=== PATIENT | male | born 1985 | race African-American/Black ===

== ENCOUNTER 2024-10-08 20:47 | Emergency (ER) | payer OTHER ==
--- OUTSIDE RECORDS SUMMARY | 2024-10-08 20:50 | XMS REPORT | Continuity of Care Document ---
Author Name Unknown Address [address] [facility] [address] [place] [address] Organization [facility] [place] Address [address] [facility] [address] [place] [address] Care Team Providers Care Pest Control Supervisor Name Role Phone Pcp, Patient Does Not Have A Primary Care Physic margie Mleanie Gifford Attending Clinician Unava ilable CARLO HERBERT Attending Clinician Unavailable Carlo Herbert MD Attending Clinician [phone] ROBERT BIRD Attending Clinician Unavailable KENYON AZUL Attending Clinician Unavailable KENYON AZUL Attending Clinician Unavailable Kenyon Arizmendi Attending Clinician [phone] MIGUELINA REYES Attending Clinician Unavailable Raymond Reyes MD Attending Clinician [phone] RAYMOND REYES Attending Clinician Unavailable RAYMOND REYES Attending Clinician Unavailable 2, [facility] Attending Clinician Unavailable 2, [facility] Attending Clinician Unavailable CHRISTOFER POLLOCK Attending Clinician Unavailable CHRISTOFER POLLOCK Attending Clinician Unavailable MG VU Attending Clinician Unavailable MG VU Attending Clinician Unavailable CATIE CONCEPCION Attending Clinician Unavailab Catie Coello DO J Attending Clinician [phone] ISABEL IBRAHIM Attending Clinician UnavailIsabel Root MD Attending Clinician [phone] CARLO HERBERT Admitting Clinician Unavailable CHRISTOFER POLLOCK Admitting Clinician Unavailable MG VU Admitting Clinician Unavailable ISABEL IBRAHIM Admitting Clinician UnavailCATIE Rivera Admitting Clinician Unavail le Problems Condition Name Condition Details Condition Category Status Onset Date Resolution Date Last Treatment Date Treating Clinician Comments Source No known active problems No known active problems Disease [facility] Allergies, Adverse Reactions, Alerts Allergy Name Allergy Type Status Severity Reaction(s) Onset Date Inactive Date Treating Clinician Comments Source NO KNOWN ALLERGIE S Drug Class Active [facility] Social History Social Habit Start Date Stop Date Quantity Comments Source Sexual orientation U [facility] Exposure to SARS-CoV-2 (event) 2022-05-10 00:00:00 2022-05-20 13:27:00 Not sure [facility] Sex assigned at 1985 00:00:00 1985 00:00:00 [facility] Smoking Status Start Date Stop Date Source Tobacco smoking consumption unknown [facility] Medications Ordered Medication Name Filled Medication Name Start Date Stop Date Current Medication? Ordering Clinician Indication Dosage Frequency Signature (SIG) Comments Components Source barium sulfate (LIQUID E-Z PAQUE) 60 % (w/v) oral suspension 70 mL 07-23 20:00: 00 07-23 20:00 :00 No [id number] 70mL 70 mL, Oral, ONCE, 1 dose, On Anum 07/23/24 at 1400, Routine [facility] sod bicarb-citr ic ac-simeth (E-Z-GAS II) 2.21-1.53 gram/4 gram packet 1 Packet 07-23 20:00: 00 07-23 19:59 :00 No [id number] 1{packe t} 1 Packet, Oral, ONCE, 1 dose, On Anum 07/23/24 at 1400, Routine [facility] sucralfate 1 gram tablet 01-05 14:47: 34 02-04 00:00 :00 No 1g Take 1 tablet by mouth before meals and at bedtime. [facility] pantoprazol e 40 mg EC tablet 01-05 14:47: 07 Yes 40mg Take 1 tablet by mouth in the morning. [facility] sucralfate (CARAFATE) 1 gram tablet 01-05 00:00: 00 02-05 04:59 :00 No [id number] 1g Take 1 tablet by mouth before meals and at bedtime for 30 days. [facility] iopamidol (ISOVUE 370-500 mL) injection 85 mL 12-25 01:30: 00 12-25 01:30 :00 No [id number] 85mL 85 mL, Intravenou s, ONCE, 1 dose, On Sat12/25/23 at 2030, Routine [facility] diphenhydrA MINE:lidoca ine 2% viscous:maa lox 1:1:1 (FIRST-MOUT HWASH BLM) oral suspension 15 mL 12-24 23:15: 00 12-24 23:42 :00 No 15mL 15 mL, Oral, ONCE, 1 dose, On Sat12/25/23 at 1815, EMILY [facility] sucralfate 1 gram tablet 12-24 00:00: 00 01-05 00:00 :00 No [id number] 1g Take 1 tablet by mouth before meals and at bedtime. [facility] pantoprazol e 40 mg EC tablet 12-24 00:00: 00 01-05 00:00 :00 No [id number] 40mg Take 1 tablet by mouth in the morning. [facility] ondansetron 4 mg disintegrat ing tablet 12-24 00:00: 00 01-05 00:00 :00 No [id number] 4mg Take 1 tablet by mouth every 4 (four) hours as needed for Nausea and Vomiting (N/V). [facility] bisacodyL (DULCOLAX) tablet 10 mg 12-17 23:15: 00 12-17 23:09 :00 No 10mg 10 mg, Oral, ONCE NOW, 1 dose, On Sat12/18/23 at 1815, Routine [facility] lactulose (CEPHULAC) solution 45 mL 12-17 22:30: 00 12-17 23:10 :00 No 45mL 45 mL, Oral, ONCE, 1 dose, On Sat12/18/23 at 1730, EMILY [facility] hyoscyamine sulfate (LEVSIN/SL) sublingual tablet 0.25 mg 12-17 22:30: 00 12-17 21:37 :00 No .25mg 0.25 mg, Sublingual , ONCE NOW, 1 dose, On Sat12/18/23 at 1730, Routine [facility] famotidine (PEPCID (PF)) injection 20 mg 12-17 22:30: 00 12-17 21:46 :00 No 20mg 20 mg, Slow IV Push, ONCE NOW, 1 dose, On Sat12/18/23 at 1730, EMILY [facility] NaCl 0.9% (NS) bolus infusion 1,000 mL 12-17 22:15: 00 12-17 23:08 :00 No 1000mL at 999 mL/hr, 1,000 mL, IV Piggyback, ONCE, 1 dose, On Sat12/18/23 at 1715, STAT [facility] docusate (COLACE) 100 mg capsule 12-17 00:00: 00 01-05 00:00 :00 No [id number] 200mg Take 2 capsules by mouth once daily as needed for Constipati on. [facility] bisacodyL 5 mg EC tablet 12-17 00:00: 00 01-05 00:00 :00 No [id number] 5mg Take 1 tablet by mouth once daily as needed for Constipati on. [facility] Saccharomyc es boulardii (FLORASTOR) 250 mg capsule 12-17 00:00: 00 01-05 00:00 :00 No [id number] 250mg Take 1 capsule by mouth in the morning and 1 capsule in the evening. [facility] famotidine (PEPCID) 20 mg tablet 12-17 00:00: 00 01-05 00:00 :00 No [id number] 20mg Take 1 tablet by mouth in the morning and 1 tablet in the evening. [facility] NaCl 0.9% (NS) bolus infusion 1,000 mL 11-25 03:45: 00 11-25 04:00 :00 No 1000mL at 999 mL/hr, 1,000 mL, IV Infusion, ONCE, 1 dose, On Sat11/25/23 at 2245, [facility] ketorolac (TORADOL) injection 30 mg 2021-06 20:30: 00 05-20 19:59 :00 No 30mg 30 mg, Slow IV Push, ONCE, 1 dose, On 05/20/22 at 1430, [facility] NaCl 0.9% (NS) bolus infusion 1,000 mL 2021-06 20:30: 00 05-20 20:50 :00 No 1000mL at 999 mL/hr, 1,000 mL, IV Infusion, ONCE, 1 dose, On 05/20/22 at 1430, [facility] dexamethaso ne sod phos PF injection 10 mg 2021-06 19:45: 00 05-20 19:54 :00 No 10mg 10 mg, Slow IV Push, ONCE, 1 dose, On 05/20/22 at 1345, 1 mL [facility] metoclopram tao HCl (REGLAN) injection 10 mg 2021-06 19:45: 00 05-20 19:55 :00 No 10mg 10 mg, Slow IV Push, ONCE, 1 dose, On 05/20/22 at 1345, [facility] ketorolac 10 mg tablet 2021-06 00:00: 00 01-05 00:00 :00 No [id number] 10mg Take 1 tablet by mouth every 6 (six) hours as needed (headache) . [facility] metoclopram tao HCl 10 mg tablet 2021-06 204 00:00: 00 01-05 00:00 :00 No [id number] 10mg Take 1 tablet by mouth every 6 (six) hours as needed (nausea and/or headache). [facility] HYDROcodone -acetaminop hen (NORCO 5) 5-325 mg tablet 1 tablet 07-13 15:45: 00 07-13 14:40 :00 No 1{tbl} 1 tablet, Oral, ONCE, 1 dose, On Anum 07/13/21 at 0945, [facility] ketorolac (TORADOL) injection 30 mg 07-13 14:45: 00 07-13 13:42 :00 No 30mg 30 mg, Intramuscu lar, ONCE, 1 dose, On Anum 07/13/21 at 0845, EMILY [facility] FENTanyl PF (SUBLIMAZE (PF)) injection 50 mcg 07-13 14:45: 00 07-13 13:42 :00 No 50ug 50 mcg, Intramuscu lar, ONCE, 1 dose, On Anum 07/13/21 at 0845, Routine [facility] naproxen sodium 550 mg tablet 12-03 00:00: 00 01-05 00:00 :00 No [id number] 550mg Take 1 tablet by mouth 2 (two) times daily with meals. [facility] Immunizations Ordered Immunization Name Filled Immunization Name Date Status Comments Source SARS-COV-2 COVID-19 MODERNA VACCINE 2020-09-19 00:00:00 Completed [facility] SARS-COV-2 COVID-19 MODERNA 12+ YRS VACCINE 2020-09-19 00:00:00 Completed [facility] SARS-COV-2 COVID-19 MODERNA 12+ YRS VACCINE 2020-09-19 00:00:00 Completed [facility] SARS-COV-2 COVID-19 MODERNA VACCINE 2020-08-24 00:00:00 Completed [facility] SARS-COV-2 COVID-19 MODERNA 12+ YRS VACCINE 2020-08-24 00:00:00 Completed [facility] SARS-COV-2 COVID-19 MODERNA 12+ YRS VACCINE 2020-08-24 00:00:00 Completed [facility] SARS-COV-2 COVID-19 MODERNA 12+ YRS VACCINE Unknown Completed [facility] SARS-COV-2 COVID-19 MODERNA 12+ YRS VACCINE Unknown Completed [facility] SARS-COV-2 COVID-19 MODERNA 12+ YRS VACCINE Unknown Completed [facility] SARS-COV-2 COVID-19 MODERNA 12+ YRS VACCINE Unknown Completed [facility] SARS-COV-2 COVID-19 MODERNA 12+ YRS VACCINE Unknown Completed [facility] SARS-COV-2 COVID-19 MODERNA 12+ YRS VACCINE Unknown Completed [facility] SARS-COV-2 COVID-19 MODERNA 12+ YRS VACCINE Unknown Completed [facility] Vital Signs Vital Name Observation Time Observation Value Comments S ource Systolic blood pressure 2024-06-29 23:36:00 135 mm[Hg] [facility] Diastolic blood pressure 2024-06-29 23:36:00 97 mm[Hg] [facility] Heart rate 2024-06-29 23:36:00 83 /min [facility] Body temperature 2024-06-29 23:36:00 37.28 Andreia [facility] Respiratory rate 2024-06-29 23:36:00 19 /min [facility] Body height 2024-06-29 23:36:[address] [facility] Body weight 2024-06-29 23:36:[address] [facility] BMI 2024-06-29 23:36:00 29.99 kg/m2 [facility] Oxygen saturation in Arterial blood by Pulse oximetry 2024-06-29 23:36:00 99 /min [facility] Systolic blood pressure 2024-02-05 18:29:00 116 mm[Hg] [facility] Diastolic blood pressure 2024-02-05 18:29:00 76 mm[Hg] [facility] Heart rate 2024-02-05 18:29:00 78 /min [facility] Body temperature 2024-02-05 18:29:00 36.61 Andreia [facility] Respiratory rate 2024-02-05 18:29:00 20 /min [facility] Body height 2024-02-05 18:29:[address] [facility] Body weight 2024-02-05 18:29:00 96.616 kg Univ [facility] BMI 2024-02-05 18:29:00 30.56 kg/m2 [facility] Oxygen saturation in Arterial blood by Pulse oximetry 2024-02-05 18:29:00 99 /min [facility] Systolic blood pressure 2024-01-06 19:47:00 133 mm[Hg] [facility] Diastolic blood pressure 2024-01-06 19:47:00 89 mm[Hg] [facility] Heart rate 2024-01-06 19:47:00 68 /min [facility] Respiratory rate 2024-01-06 19:47:00 20 /min [facility] Body height 2024-01-06 19:47:[address] [facility] Body weight 2024-01-06 19:47:[address] [facility] BMI 2024-01-06 19:47:00 29.84 kg/m2 [facility] Oxygen saturation in Arterial blood by Pulse oximetry 2024-01-06 19:47:00 98 /min [facility] Systolic blood pressure 2023-12-26 00:41:00 111 mm[Hg] [facility] Diastolic blood pressure 2023-12-26 00:41:00 76 mm[Hg] [facility] Heart rate 2023-12-26 00:41:00 74 /min [facility] Body temperature 2023-12-26 00:41:00 36.78 Andreia [facility] Respiratory rate 2023-12-26 00:41:00 18 /min [facility] Oxygen saturation in Arterial blood by Pulse oximetry 2023-12-26 00:41:00 98 /min [facility] Body height 2023-12-25 22:36:[address] [facility] Body weight 2023-12-25 22:36:[address] [facility] BMI 2023-12-25 22:36:00 31.01 kg/m2 [facility] Systolic blood pressure 2023-12-18 23:00:00 116 mm[Hg] [facility] Diastolic blood pressure 2023-12-18 23:00:00 76 mm[Hg] [facility] Heart rate 2023-12-18 23:00:00 64 /min [facility] Body temperature 2023-12-18 23:00:00 36.83 Andreia [facility] Respiratory rate 2023-12-18 23:00:00 13 /min [facility] Oxygen saturation in Arterial blood by Pulse oximetry 2023-12-18 23:00:00 98 /min [facility] Body height 2023-12-18 21:16:[address] [facility] Body weight 2023-12-18 21:16:[address] [facility] BMI 2023-12-18 21:16:00 28.70 kg/m2 [facility] Systolic blood pressure 2023-11-26 04:00:00 124 mm[Hg] [facility] Diastolic blood pressure 2023-11-26 04:00:00 87 mm[Hg] [facility] Heart rate 2023-11-26 04:00:00 58 /min [facility] Body temperature 2023-11-26 04:00:00 36.72 Andreia [facility] Respiratory rate 2023-11-26 04:00:00 18 /min [facility] Oxygen saturation in Arterial blood by Pulse oximetry 2023-11-26 04:00:00 99 /min [facility] Body height 2023-11-26 02:38:[address] [facility] Body weight 2023-11-26 02:38:[address] [facility] BMI 2023-11-26 02:38:00 30.85 kg/m2 [facility] Systolic blood pressure 2022-05-20 20:30:00 117 mm[Hg] [facility] Diastolic blood pressure 2022-05-20 20:30:00 74 mm[Hg] [facility] Heart rate 2022-05-20 20:30:00 66 /min [facility] Respiratory rate 2022-05-20 20:30:00 15 /min [facility] Oxygen saturation in Arterial blood by Pulse oximetry 2022-05-20 20:30:00 99 /min [facility] Body temperature 2022-05-20 19:29:00 37 Andreia [facility] Body height 2022-05-20 19:29:[address] [facility] Body weight 2022-05-20 19:29:[address] [facility] BMI 2022-05-20 19:29:00 30.13 kg/m2 [facility] Systolic blood pressure 2021-07-13 12:39:00 137 mm[Hg] [facility] Diastolic blood pressure 2021-07-13 12:39:00 86 mm[Hg] [facility] Heart rate 2021-07-13 12:39:00 57 /min [facility] Body temperature 2021-07-13 12:39:00 36.67 Andreia [facility] Respiratory rate 2021-07-13 12:39:00 18 /min [facility] Body height 2021-07-13 12:39:[address] [facility] Body weight 2021-07-13 12:39:[address] [facility] BMI 2021-07-13 12:39:00 30.85 kg/m2 [facility] Oxygen saturation in Arterial blood by Pulse oximetry 2021-07-13 12:39:00 98 /min [facility] Procedures Procedure Date / Time Performed Performing Clinicia n Source [place] BARIUM SWALLOW ESOPHAGUS 2024-07-23 19:54:55 Requisition, Paper [facility] CT ABDOMEN PELVIS W CONTRAST 2023-12-26 00:34:03 Christofer Pollock [facility] LIPASE 2023-12-25 23:50:00 Christofer Pollock [facility] COMP. METABOLIC PANEL ([id number]) 2023-12-25 23:50:00 [facility]23-12-25 23:50:00 Phill [facility] CBC WITH DIFF 2023-12-25 23:45:00 Phill [facility] LIPASE 2023-12-18 21:45:00 Catherine [facility] COMP. METABOLIC PANEL ([id number]) 2023-12-18 21:45:00 Catherine [facility] CBC WITH DIFF 2023-12-18 [facility]:45[facility]-18 21:45:00 Catherine [facility] EKG-12 LEAD 2023-11-26 03:59:25 [facility]FF 2023-11-26 03:43:00 Catie [facility] MAGNES[facility]UM 2023-11-26 02:57:00 Catie Concepcion [facility] TROPONIN I 2023-11-26 02:57:00 Catie Concepcion [facility] COMP. METABOLIC PANEL ([id number]) 2023-11-26 02:57:00 Catie Concepcion [facility] URINALYSIS 2023-11-26 02:57:00 Catie Concepcion [facility] CT HEAD WO CONTRAST 2022-05-20 20:10:04 Isabel Ibrahim [facility] BASIC METABOLIC PANEL (NA, K, CL, CO2, GLUCOSE, BUN, CREATININE, CA) 2022-05-20 19:53:00 Isabel Ibrahim [facility] CBC WITH DIFF 2022-05-20 19:53:00 Isabel Ibrahim [facility] CONSENT/REFUSAL FOR DIAGNOSIS AND TREATMENT 2022-05-20 19:14:43 Doctor Unassigned, [place] [facility] XR CHEST 2 VW 2021-07-13 13:57:08 Catie Concepcion [facility] CONSENT/REFUSAL FOR DIAGNOSIS AND TREATMENT 2021-07-13 12:36:48 Doctor Unassigned, [place] [facility] NOTICE OF PRIVACY PRACTICES 2021-07-13 12:35:03 Doctor Unassigned, [place] [facility] Encounters Start Date/Time End Date/Time Encounter Type Admission Type Attending [facility] Care Facility Care Department Encounter ID Source 2024-01-20 00:00:00 2024-08-01 07:11:41 Orders Only Melanie Gifford [place] [facility] 1.2.840.114 350.1.13.10 4.2.7.2.686 [id number] [facility] 2024-07-23 12:38:54 2024-07-23 23:59:00 Outpatient CARLO MACKAY [facility] [id number] [facility] 2024-07-23 12:38:54 2024-07-23 23:59:00 Hospital Encounter Carlo Herbert [facility] 1.2.840.114 350.1.13.10 4.2.7.2.686 [id number] [facility] 2024-07-20 11:00:00 2024-07-20 11:00:00 Outpatient CARLO MACKAY [facility] [id number] [facility] 2024-07-01 12:30:00 2024-07-01 12:30:00 Outpatient ROBERT OROZCO [facility] [id number] [facility] 2024-06-29 17:39:00 2024-06-29 18:48:00 Emergency X KENYON AZUL ERICCA [facility] ERT [id number] [facility] 2024-06-29 17:39:00 2024-06-29 18:48:00 Emergency Kenyon Azul [facility] 1.2.840.114 350.1.13.10 4.2.7.2.686 [id number] [facility] 2024-06-20 22:01:00 2024-06-21 00:33:00 Emergency Emergency MIGUELINA REYES [facility] General Medicine [id number] [facility] 2024-02-05 13:30:00 2024-02-05 13:45:00 Office Visit Nat [facility] 1.2.840.114 350.1.13.10 4.2.7.2.686 [id number] [facility] 2024-02-05 13:30:00 2024-02-05 13:30:00 [facility] [id number] [facility] 2024-01-20 16:15:00 2024-01-20 16:30:00 Truck Jumper Visit 2, Adc Lab Raymond Reyes , [facility] 1.2.840.114 350.1.13.10 4.2.7.2.686 [id number] [facility] 2024-01-20 16:15:00 2024-01-20 16:15:00 Outpatient R RAYMOND REYES [facility] [id number] [facility] 2024-01-06 15:30:00 2024-01-06 15:45:00 Truck Jumper Visit 2[facility] 1.2.840.114 350.1.13.10 4.2.7.2.686 [id number] [facility] 2024-01-06 14:30:00 2024-01-06 15:23:39 [facility] [id number] [facility] 2024-01-06 14:30:00 2024-01-06 15:23:39 Office Visit Raymond Reyes [facility] 1..840.114 350.1.13.10 4.2.7.2.686 [id number] [facility] 2023-12-25 17:39:00 2023-12-25 20:05:00 Emergency X CHRISTOFER POLLOCK DONNELL [facility] ERT [id number] [facility] 2023-12-25 17:39:00 2023-12-25 20:05:00 Emergency PollockChristofer [facility] 1..840.114 350.1.13.10 4.2.7.2.686 [id number] [facility] 2023-12-18 16:18:00 2023-12-18 18:19:00 Emergency MG CRUM ANDRES [facility] ERT [id number] [facility] 2023-12-18 16:18:00 2023-12-18 18:19:00 Emergency Mg Vu [facility] 1..840.114 350.1.13.10 4.2.7.2.686 [id number] [facility] 2023-11-25 21:40:00 2023-11-25 23:30:00 Emergency CATIE SOUSA [facility] ERT [id number] [facility] 2023-11-25 21:40:00 2023-11-25 23:30:00 Emergency Catie Concepcion [facility] 1..840.114 350.1.13.10 4.2.7.2.686 [id number] [facility] 2022-05-20 13:31:00 2022-05-20 15:09:00 Emergency X ISABEL IBRAHIM [facility] ERT [id number] [facility] 2022-05-20 13:31:00 2022-05-20 15:09:00 Emergency Isabel Ibrahim [facility] 1.2.840.114 350.1.13.10 4.2.7.2.686 [id number] [facility] 2021-07-13 06:42:00 2021-07-13 08:51:00 Emergency CATIE [facility] ERT [id number] [facility] 2021-07-13 06:42:00 2021-07-13 08:51:00 Emergency Catie Concepcion [facility] 1.2.840.114 350.1.13.10 4.2.7.2.686 [id number] [facility] Results Test Description Test Time Test Comments Results Result Comments Source [place] Barium swallow esophagus 20:08:15 EXAM: Barium swallow/esophagram HISTORY: Chronic gastritis, presence of bleeding unspecified, unspecifiedgastritis type Faxed ?order; TECHNIQUE:Fluoroscopic, double contrast evaluation of the esophagus isperformed with patient in gravity dependent and recumbent positions.Multiple static images and cine sequences are obtained in uploaded to PACS. FINDINGS: The oral and pharyngeal phase of swallowing is normal. There is no evidenceof laryngeal penetration or aspiration. The esophagus demonstrates normal mucosa and motility. No ulcerations,strictures or masses are seen. No hiatal hernia is seen. No gastroesophageal reflux is demonstrated duringthe examination. [facility] CT ABDOMEN PELVIS W CONTRAST 00:37:32 EXAM: CT ABDOMEN PELVIS W CONTRAST ORDERING PROVIDER: CHRISTOFER POLLOCK HISTORY: 38 years-old Male; Provided Ordering Indication: Pancreatitis,acute, severe . TECHNIQUE: Contiguous axial imaging from the level of the lung basesthrough the proximal thighs was performed with intravenous contrast.Coronal and sagittal reconstructions were obtained. COMPARISON: None FINDINGS: The lung bases are clear. The liver is normal in size and contour. The parenchyma is diffuselyhypoattenuating . No focal lesion is seen. The gallbladder, biliary system, pancreas, spleen, adrenal glands, andkidneys enhance appropriately and are without suspicious lesions. The gastrointestinal tract has no wall thickening, obstruction, or abnormaldilatation. A normal appendix is seen on series 2 image 93. The urinary bladder is decompressed. The prostate is unremarkable. No free air, fluid collection, or suspicious lymphadenopathy is seen. The vessels are patent. Mild atherosclerotic calcifications are noted inthe aortoiliac vasculature. No acute osseous abnormality or aggressiveosseous lesion is visualized. The soft tissues have no concerning findings. [facility] ([id number])2023-12-18 22:21:07* Test Item Value Reference Range Interpretation Comme nts NA (test code = 3674476099) 138 mmol/L 135-145 K (test code = 7276418370) 4.1 mmol/L 3.5-5.0 CL (test code = 4876082960) 100 mmol/L 98-108 CO2 TOTAL (test code = 2711143268) 31 mmol/L 23-31 AGAP (test code = 1635309950) 7 2-16 BUN (test code = 6134006795) 16 mg/dL 7-23 GLUCOSE (test code = 8671811872) 129 mg/dL 70-110 H CREATININE (test code = 2160-0) 0.95 mg/dL 0.60-1.25 TOTAL BILI (test code = 8804846659) 0.7 mg/dL 0.1-1.1 CALCIUM (test code = 9157314329) 9.1 mg/dL 8.6-10.6 T PROTEIN (test code = 1085423906) 8.9 g/dL 6.3-8.2 H ALBUMIN (test code = 5402593214) 4.7 g/dL 3.5-5.0 ALK PHOS (test code = 3612091819) 90 U/L 34-122 ALTv (test code = 1742-6) 21 U/L 5-50 AST(SGOT) (test code = 1288759705) 28 U/L 13-40 eGFR (test code = 45620-5) 105.1 mL/min/1.73m2 CKD-EPI eGFR (2020). Assuming creatinine has been stable day-to-day for at least three months, the eGFR indicates Category G1 (>= 90 mL/min/1.73 m2) Lab Interpretation (test code = 82841-5) [facility]normal [facility]20:52* Test Item Value Reference Range Interpretation Comme nts LIPASE (test code = 1898344564) 108 U/L 0-220 Lab Interpretation (test cod e = 94103-9) Normal [facility] WITH [id number] 03:57:02* Test Item Value Reference Range Interpretation Comme nts WBC (test code = 6690-2) 5.54 4.20-10.70 RBC (test code = 789-8) 3.83 4.26-5.52 L HGB (test code = 718-7) 11.6 g/dL 12.2-16.4 L HCT (test code = 4544-3) 34.1 % 38.4-49.3 L MCV (test code = 787-2) 89.0 fL 81.7-95.6 MCH (test code = 785-6) 30.3 pg 26.1-32.7 MCHC (test code = 786-4) 34.0 g/dL 31.2-35.0 RDW-SD (test code = 61065-7) 38.5 fL 38.5-51.6 RDW-CV (test code = 788-0) 11.9 % 12.1-15.4 L PLT (test code = 777-3) 171 150-328 MPV (test code = 38886-0) 10.9 fL 9.8-13.0 NRBC/100 WBC (test code = 5351269968) 0.0 0.0-10.0 NRBC x10^3 (test code = 1961939516) See_Comment [Automated messa ge] The system which generated this result transmitted reference range: 10*3/?L. The reference range was not used to interpret this result as normal/abnormal. GRAN MAT (NEUT) % (test code = 770-8) 61.8 % IMM GRAN % (test code = 9598430398) 0.20 % LYMPH % (test code = 736-9) 28.0 % MONO % (test code = 5905-5) 7.6 % EOS % (test code = 713-8) 2.0 % BASO % (test code = 706-2) 0.4 % GRAN MAT x10^3(ANC) (test code = 9944537484) 3.43 10*3/uL 1.99-6.95 IMM GRAN x10^3 (test code = 1406959750) 0.00-0.06 LYMPH x10^3 (test code = 731-0) 1.55 10*3/uL 1.09-3.23 MONO x10^3 (test code = 742-7) 0.42 10*3/uL 0.36-1.02 EOS x10^3 (test code = 711-2) 0.11 10*3/uL 0.06-0.53 BASO x10^3 (test code = 704-7) 0.01-0.09 Lab Interpretation (test code = 01450-6) Abnormal [facility] [id number] 03:38:44* Test Item Value Reference Range Interpretation Comme nts TROPONIN I (test code = 2092734824) 0.018 ng/mL <=0.034 CORA (test code = CORA) Reference (Normal) Range (defined by the 99th percentile reference limit): <= 0.034 ng/mL Note: Cardiac troponin begins to rise 3-4 hours after the onset of ischemia. Repeat in 4-6 hours if the sample was drawn within 3-4 hours of the onset of the symptom and found normal. Diagnosis of myocardial injury is made with acute changes in cTn concentrations with at least one serial sample above the 99th percentile upper reference limit (URL), taken together with the patient's clinical presentation. Biotin has been reported to cause a negative bias, interpret results relative to patient's use of biotin. Lab Interpretation (test code = 11060-2) Normal [facility]2024-06-11 03:28:18* Test Item Value Reference Range Interpretation Comme nts MAGNESIUM (test code = 4996544289) 2.0 mg/dL 1.7-2.4 Lab Interpretation (test cod e = 93654-9) Normal [facility] METABOLIC PANEL (96813)2023-11-26 03:27:58* Test Item Value Reference Range Interpretation Comme nts NA (test code = 8484499252) 141 mmol/L 135-145 K (test code = 2159513385) 4.9 mmol/L 3.5-5.0 CL (test code = 5126583342) 103 mmol/L 98-108 CO2 TOTAL (test code = 2809871990) 36 mmol/L 23-31 H AGAP (test code = 2485130098) 2 2-16 BUN (test code = 6183985529) 11 mg/dL 7-23 GLUCOSE (test code = 8146685842) 154 mg/dL 70-110 H CREATININE (test code = 2160-0) 0.82 mg/dL 0.60-1.25 TOTAL BILI (test code = 9181084179) 1.0 mg/dL 0.1-1.1 CALCIUM (test code = 3049681803) 9.1 mg/dL 8.6-10.6 T PROTEIN (test code = 2246406159) 8.3 g/dL 6.3-8.2 H ALBUMIN (test code = 4697628194) 4.3 g/dL 3.5-5.0 ALK PHOS (test code = 6608921237) 65 U/L 34-122 ALTv (test code = 1742-6) 28 U/L 5-50 AST(SGOT) (test code = 3223493284) 38 U/L 13-40 eGFR (test code = 75804-6) 115.3 mL/min/1.73m2 CKD-EPI eGFR (2020). Assuming creatinine has been stable day-to-day for at least three months, the eGFR indicates Category G1 (>= 90 mL/min/1.73 m2) Lab Interpretation (test code = 15184-0) Abnormal [facility] Notes Date/Time Note Provider Source 2024-06-29 18:47:58 Pt not in lobby, registration unable to locate as well Davila RN [facility] 2024-06-29 17:35:39 Epigastric pain since December. Patient was just seen for same last week. Described as intermittent epigastric / chest pain and gas pain. HX: denies. ICAL CHECKER Johanny Foreman RN [facility] 2024-01-20 16:15:00 Patient presented with specimen for drop-off and was identified by and name. Collection information/ total volume were documented accordingly. The following specimens were sent to [facility] laboratories per lab order on 01/20/2024: 24 hour urine Random urine Stool 1 Swab Other [facility] 2024-01-06 15:30:00 Pt picked up stool kit. Roselia Rosas [facility] 2023-12-25 20:04:39 Pt given printed and verbal discharge instructions regarding epigastric pain, encouraged hydration, 3 Prescriptions sent to pharmacy Pt verbalized understanding of instructions, pt awake alert oriented, resp reg unlabored, skin w/d, color appropriate for race, moves all ext well,pt encouraged to follow up with pcp Advised to seek medical attention for new/prolonged/worsening of symptoms. No adverse reaction to meds given in ER noted upon discharge PIV d'cd, dressing to site, catheter in tact. Awake, alert oriented, resp reg unlabored, skin w/d, pt leaving ambulatory with steady gait, in no apparent distress, Herminia Mendoza RN [facility] 2023-12-25 17:36:11 Pt arrived to ed with c/o having abd pain started 1 week ago was seen here was told constipation, pt reports taking meds prescribe and pain isnt resolving. Pt reports having white BM Radha Barboza RN [facility] 2023-12-25 17:30:00 EMERGENCY DEPARTMENT ENCOUNTER [facility] Patient Name: Madi Low Date of : 1985 38 year old Exam Room:[facility] ED [facility] Primary Care Physician: PATIENT DOES NOT HAVE A PCP Pre- Hospital Patient Escorted by: Family [5] Mode of Arrival: Personal means [1] EMS Treatment Prior to ED Arrival: IC DESIGNER STANDARD CELLS treatment: None ED Events Date/Time Event User Comments 12/25/231750 Medical Screening Begins CHRISTOFER POLLOCK MD -- 12/25/231750 First Provider Evaluation CHRISTOFER POLLOCK MD -- Chief Complaint Chief Complaint Patient presents with Abdominal Pain Constipation ED Triage Notes Radha Barboza RN 12/25/2023 17:38 Pt arrived to ed with c/o having abd pain started 1 week ago was seen here was told constipation, pt reports taking meds prescribe and pain isnt resolving. Pt reports having white BM HPI History provided by: Patient Abdominal Pain Pain location: Epigastric Pain quality: cramping and gnawing Pain radiates to: Back Pain severity: Moderate Onset quality: Gradual Duration: 1 week Timing: Intermittent Progression: Waxing and waning Chronicity: New Relieved by: Nothing Worsened by: Nothing Associated symptoms: no chest pain, no chills, no cough, no dysuria, no fatigue, no fever, no hematemesis, no hematochezia, no nausea, no shortness of breath and no vomiting Past Medical History / Immunizations No past medical history on file. Tetanus received in last 5 years: No Past Surgical History No past surgical history on file. Allergies No Known Allergies Social History Substance & Sexual Activity No substance use or sexual activity history on file. Review of Systems Review of Systems Constitutional: Negative. Negative for chills, fatigue, fever and unexpected weight change. HENT: Negative. Eyes: Negative. Negative for discharge and itching. Respiratory: Negative. Negative for cough, chest tightness, shortness of breath and wheezing. Cardiovascular: Negative. Negative for chest pain and palpitations. Gastrointestinal: Positive for abdominal pain. Negative for abdominal distention, hematemesis, hematochezia, nausea and vomiting. Genitourinary: Negative. Negative for dysuria, urgency, frequency and flank pain. Musculoskeletal: Negative. Skin: Negative. Negative for color change, pallor and wound. Neurological: Negative. Negative for dizziness, syncope, light-headedness and headaches. Psychiatric/Behavioral: Negative. Negative for agitation and behavioral problems. All other systems reviewed and are negative. Endocrine: Endocrine negative Physical Exam ED Triage Vitals [12/25/23 1736] Weight 95.3 kg (210 lb) Actual or estimated Actual Height 1.753 m (5' 9") BP 125/84 Pulse 88 Resp 18 Temp 37 ?C (98.6 ?F) Temp source Oral SpO2 100 % Measured on Room air Physical Exam Vitals reviewed. Constitutional: Appearance: He is well-developed. HENT: Head: Normocephalic and atraumatic. Nose: Nose normal. Eyes: Conjunctiva/sclera: Conjunctivae normal. Neck: Trachea: No tracheal deviation. Cardiovascular: Rate and Rhythm: Normal rate and regular rhythm. Heart sounds: Normal heart sounds. No murmur heard. No friction rub. Pulmonary: Effort: Pulmonary effort is normal. No respiratory distress. Breath sounds: Normal breath sounds. No stridor. No wheezing or rales. Abdominal: General: Bowel sounds are normal. There is no distension. Palpations: Abdomen is soft. Tenderness: There is abdominal tenderness in the epigastric area. There is no guarding or rebound. Musculoskeletal: General: Normal range of motion. Cervical back: Normal range of motion and neck supple. Skin: General: Skin is warm and dry. Neurological: Mental Status: He is alert and oriented to person, place, and time. Cranial Nerves: No cranial nerve deficit. Sensory: No sensory deficit. Psychiatric: Behavior: Behavior normal. Labs Lab Results COMP. METABOLIC PANEL (45332) - Abnormal Result Value Ref Range NA 141 135 - 145 mmol/L K 4.3 3.5 - 5.0 mmol/L CL 105 98 - 108 mmol/L CO2 TOTAL 31 23 - 31 mmol/L AGAP 5 2 - 16 BUN 13 7 - 23 mg/dL GLUCOSE 119 (*) 70 - 110 mg/dL CREATININE 1.06 0.60 - 1.25 mg/dL TOTAL BILI 0.6 0.1 - 1.1 mg/dL CALCIUM 9.4 8.6 - 10.6 mg/dL T PROTEIN 8.8 (*) 6.3 - 8.2 g/dL ALBUMIN 4.6 3.5 - 5.0 g/dL ALK PHOS 83 34 - 122 U/L ALTv 17 5 - 50 U/L AST(SGOT) 27 13 - 40 U/L eGFR 92.1 mL/min/1.73m2 URINALYSIS - Abnormal APPEARANCE Clear Clear COLOR Gaye (*) Yellow PH 5.0 4.8 - 8.0 SP GRAVITY 1.032 (*) 1.003 - 1.030 GLU U QUAL Normal Normal BLOOD Negative Negative KETONES 5 mg/dL (*) Negative PROTEIN 30 mg/dL (*) Negative UROBILIN 2.0 mg/dL (*) Normal BILIRUBIN Negative Negative NITRITE Negative Negative LEUK KHADIJAH Negative Negative RBC/HPF 3 0 - 3 HPF WBC/HPF 5 0 - 5 HPF BACTERIA Few (*) Negative MUCOUS Marked (*) Negative LPF SQ EPITH <1 HPF HYAL CAST 16 (*) <=2 LPF LIPASE - Normal LIPASE 68 0 - 220 U/L CBC WITH DIFF WBC 8.25 4.20 - 10.70 10*3/?L RBC 5.19 4.26 - 5.52 10*6/?L HGB 15.7 12.2 - 16.4 g/dL HCT 45.9 38.4 - 49.3 % MCV 88.4 81.7 - 95.6 fL MCH 30.3 26.1 - 32.7 pg MCHC 34.2 31.2 - 35.0 g/dL RDW-SD 39.8 38.5 - 51.6 fL RDW-CV 12.3 12.1 - 15.4 % PLT 250 150 - 328 10*3/?L MPV 10.5 9.8 - 13.0 fL NRBC/100 WBC 0.0 0.0 - 10.0 /100 WBCs NRBC x10 3 <0.01 10*3/?L GRAN MAT (NEUT) % 56.0 % IMM GRAN % 0.20 % LYMPH % 36.7 % MONO % 5.9 % EOS % 0.8 % BASO % 0.4 % GRAN MAT x10 3 (ANC) 4.61 1.99 - 6.95 10*3/uL IMM GRAN x10 3 <0.03 0.00 - 0.06 10*3/uL LYMPH x10 3 3.03 1.09 - 3.23 10*3/uL MONO x10 3 0.49 0.36 - 1.02 10*3/uL EOS x10 3 0.07 0.06 - 0.53 10*3/uL BASO x10 3 0.03 0.01 - 0.09 10*3/uL Imaging CT ABDOMEN PELVIS W CONTRAST Final Result EXAM: CT ABDOMEN PELVIS W CONTRAST ORDERING PROVIDER: CHRISTOFER POLLOCK HISTORY: 38 years-old Male; Provided Ordering Indication: Pancreatitis, acute, severe . TECHNIQUE: Contiguous axial imaging from the level of the lung bases through the proximal thighs was performed with intravenous contrast. Coronal and sagittal reconstructions were obtained. COMPARISON: None FINDINGS: The lung bases are clear. The liver is normal in size and contour. The parenchyma is diffusely hypoattenuating. No focal lesion is seen. The gallbladder, biliary system, pancreas, spleen, adrenal glands, and kidneys enhance appropriately and are without suspicious lesions. The gastrointestinal tract has no wall thickening, obstruction, or abnormal dilatation. A normal appendix is seen on series 2 image 93. The urinary bladder is decompressed. The prostate is unremarkable. No free air, fluid collection, or suspicious lymphadenopathy is seen. The vessels are patent. Mild atherosclerotic calcifications are noted in the aortoiliac vasculature. No acute osseous abnormality or aggressive osseous lesion is visualized. The soft tissues have no concerning findings. IMPRESSION No CT evidence of pancreatitis or other acute findings. Hepatic steatosis. Orders and Treatments Orders Placed This Encounter Procedures CT ABDOMEN PELVIS W CONTRAST CBC WITH DIFF COMP. METABOLIC PANEL (11520) LIPASE URINALYSIS Orders Placed This Encounter Medications diphenhydrAMINE:lidocaine 2% viscous:maalox 1:1:1 (FIRST-MOUTHWASH BLM) oral suspension 15 mL iopamidol (ISOVUE 370-500 mL) injection 85 mL sucralfate 1 gram tablet pantoprazole 40 mg EC tablet ondansetron 4 mg disintegrating tablet Procedures Procedures MDM Patient was evaluated for an emergency medical condition related to Abdominal Pain and Constipation Diagnoses considered but not limited to: GERD PUD Pancreatitis Labs:were ordered, and resulted, any relevant abnormalities were considered. Abnormal Labs Reviewed COMP. METABOLIC PANEL (48939) - Abnormal; Notable for the following components: Result Value GLUCOSE 119 (*) T PROTEIN 8.8 (*) All other components within normal limits URINALYSIS - Abnormal; Notable for the following components: COLOR Gaye (*) SP GRAVITY 1.032 (*) KETONES 5 mg/dL (*) PROTEIN 30 mg/dL (*) UROBILIN 2.0 mg/dL (*) BACTERIA Few (*) MUCOUS Marked (*) HYAL CAST 16 (*) All other components within normal limits Imaging:This is a teaching institution and preliminary studies are read by physicians in training. A final read by a radiologist will be confirmatory of preliminary studies or may include addenda. A reasonable attempt will be made to contact the patient or family to communicate findings if necessary. Diagnosis/Impression as of 12/25/231947 Epigastric pain Medical Decision Making Problems Addressed: Epigastric pain: acute illness or injury Amount and/or Complexity of Data Reviewed Labs: ordered. Decision-making details documented in ED Course. Radiology: ordered and independent interpretation performed. Decision-making details documented in ED Course. Risk Prescription drug management. Pulse Oximetry: is not hypoxic. Interpreted. Reassessment:stable Communication with literacy consultant: None. Limitations to patient care and compliance: none. Plan & Summary: The patient is a 38-year-old gentleman who presents for epigastric pain. He is a smoker. He denies any discolored stools. No nausea or vomiting. He describes a gnawing pain that radiates to his back. Initial differential included peptic ulcer disease versus GERD versus pancreatitis. Hematological and chemistry studies are within acceptable range. Urine is clean. CT of the abdomen pelvis did not demonstrate any acute pathology. He had improved symptoms after GI cocktail. His pain went from a 7 to a 3. His discomfort is likely gastric in nature. But to the patient to cease smoking. Also to eat a healthy diet. He was sent home with Carafate, Protonix, and Zofran. He was discharged with referral to Dr. Reyes for possible EGD. He was discharged in stable and improved condition. He can return for any questions or concerns. Madi Low is a 38 year old male presenting for complaint(s) listed within the note. . Patient has been deemed stable for discharge. Follow up with providers listed below for further evaluation and management. Return precautions given if symptoms worsen as documented in the discharge instructions. History, physical exam findings, results of visit, diagnosis, medication regimens and plan of future care have been considered. Additional MDM may be found in the ED course. Vital signs were rechecked before final disposition and determined to be stable. Disposition & Follow Up ED Disposition ED Disposition Disch - Home Condition Stable Comment -- Patient's Medications START taking these medications ONDANSETRON 4 MG DISINTEGRATING TABLET Take 1 tablet by mouth every 4 (four) hours as needed for Nausea and Vomiting (N/V). PANTOPRAZOLE 40 MG EC TABLET Take 1 tablet by mouth in the morning. SUCRALFATE 1 GRAM TABLET Take 1 tablet by mouth before meals and at bedtime. CONTINUE taking these medications which have NOT CHANGED BISACODYL 5 MG EC TABLET Take 1 tablet by mouth once daily as needed for Constipation. DOCUSATE (COLACE) 100 MG CAPSULE Take 2 capsules by mouth once daily as needed for Constipation. FAMOTIDINE (PEPCID) 20 MG TABLET Take 1 tablet by mouth in the morning and 1 tablet in the evening. KETOROLAC 10 MG TABLET Take 1 tablet by mouth every 6 (six) hours as needed (headache). METOCLOPRAMIDE HCL 10 MG TABLET Take 1 tablet by mouth every 6 (six) hours as needed (nausea and/or headache). NAPROXEN SODIUM 550 MG TABLET Take 1 tablet by mouth 2 (two) times daily with meals. SACCHAROMYCES BOULARDII (FLORASTOR) 250 MG CAPSULE Take 1 capsule by mouth in the morning and 1 capsule in the evening. START taking Modified Medications as Prescribed No medications on file STOP taking these medications No medications on file Contact information for follow-up Pcp, Patient Does Not Have A Relationship: PCP - General [address] [place] [id number] Christofer Pollock Jr., MD Clinical Activity Specialist [facility] Emergency Department [employer] is used frequently and may produce errors. Promptly contact for obvious discrepancies. Christofer Pollock MD 12/25/23 1950 [facility] 2023-12-18 18:18:04 Pt discharged with diagnosis of acute epigastric pain, constipation, encouraged hydration. Printed and verbal instructions reviewed with and given to pt. Pt. verbalized understanding of teaching and recommended follow-up. Denies questions or concerns at this time. Pt ambulatory at discharge. Appears in no apparent distress. No ataxia noted. 4 prescriptions provided to pt Advised to seek medical attention for new/prolonged/worsening of symptoms, Symptoms improved. No adverse reaction to meds given in ER noted upon discharge PIV d'cd, dressing to site, catheter in tact. Desirae Arthur RN [facility] 2023-12-18 16:14:49 Pt states "For a week I have been having a lot of gas but now the pain is getting worse and moving to my back." Pt pointing to pain in epigastric area Herminia Mendoza RN [facility] 2023-12-18 16:10:00 [facility] Emergency Department Note Patient Name: Madi Low Date of : 1985 38 year old male Treatment Room: [place] [address] Primary Care Physician: PATIENT DOES NOT HAVE A PCP Patient Escorted by: Self [9] Mode of Arrival: Personal means [1] EMS Treatment Prior to ED Arrival: IC DESIGNER STANDARD CELLS treatment: None Travel and Exposure Screening: Symptoms Does patient have any of these symptoms?: (not recorded) Exposure Screening Has patient had contact with someone with a communicable disease in the last month?: (not recorded) Diseases exposed to:: (not recorded) Is Patient ?: (not recorded) Exposure Date: (not recorded) Chief Complaint: Chief Complaint Patient presents with Abdominal Pain History of Present Illness: 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 Ineffective treatments: None tried Associated symptoms: anorexia, constipation and fatigue Associated symptoms: no belching, no chest pain, no chills, no cough, no diarrhea, no dysuria, no fever, no hematuria, no melena, no nausea, no shortness of breath, no sore throat and no vomiting Risk factors: no alcohol abuse, no aspirin use, not elderly, has not had multiple surgeries, no NSAID use, not obese, not and no recent hospitalization Past Medical History/Immunizations: History reviewed. No pertinent past medical history. Tetanus received in last 5 years: No Allergies: No Known Allergies Past Social History: Substance & Sexual Activity No substance use or sexual activity history on file. Past Surgical History: History reviewed. No pertinent surgical history. Review of Systems: Review of Systems Constitutional: Positive for fatigue. Negative for activity change, appetite change, chills, diaphoresis and fever. HENT: Negative for congestion, ear discharge, ear pain, rhinorrhea, sore throat and trouble swallowing. Eyes: Negative for photophobia, pain, discharge and redness. Respiratory: Negative for cough, chest tightness, shortness of breath and wheezing. Cardiovascular: Negative for chest pain, palpitations and leg swelling. Gastrointestinal: Positive for abdominal pain, anorexia and constipation. Negative for abdominal distention, blood in stool, diarrhea, melena, nausea and vomiting. Genitourinary: Negative for dysuria, urgency, polyuria, frequency, hematuria and flank pain. Musculoskeletal: Negative for arthralgias, joint swelling, myalgias and neck stiffness. Skin: Negative for color change, rash and wound. Neurological: Negative for dizziness, seizures, syncope, facial asymmetry, weakness, light-headedness, numbness and headaches. Psychiatric/Behavioral: Negative for agitation, confusion, hallucinations and self-injury. The patient is not nervous/anxious. Hematological: Negative for adenopathy and cold intolerance. Does not bruise/bleed easily. Endocrine: Negative for cold intolerance, polydipsia and polyuria. Physical Exam: ED Triage Vitals [12/18/23 1616] Weight 90.7 kg (200 lb) Actual or estimated Estimated by patient/family report Height 1.778 m (5' 10") BP (!) 148/105 Pulse 82 Resp 18 Temp 37.5 ?C (99.5 ?F) Temp source Oral SpO2 100 % Measured on Room air Physical Exam Vitals and nursing note reviewed. Constitutional: General: He is awake. Appearance: Normal appearance. He is well-developed. He is not ill-appearing, toxic-appearing or diaphoretic. HENT: Head: Normocephalic and atraumatic. Right Ear: External ear normal. Left Ear: External ear normal. Nose: Nose normal. Eyes: General: No scleral icterus. Right eye: No discharge. Left eye: No discharge. Conjunctiva/sclera: Conjunctivae normal. Right eye: Right conjunctiva is not injected. Left eye: Left conjunctiva is not injected. Pupils: Pupils are equal, round, and reactive to light. Neck: Thyroid: No thyromegaly. Vascular: No carotid bruit or JVD. Trachea: No tracheal deviation. Meningeal: Brudzinski's sign and Kernig's sign absent. Cardiovascular: Rate and Rhythm: Normal rate and regular rhythm. Pulses: Normal pulses. Heart sounds: Normal heart sounds. No murmur heard. No friction rub. Pulmonary: Effort: Pulmonary effort is normal. No respiratory distress. Breath sounds: Normal breath sounds. No stridor. No wheezing or rales. Chest: Chest wall: No tenderness. Abdominal: General: Abdomen is flat. Bowel sounds are normal. There is no distension or abdominal bruit. Palpations: Abdomen is soft. There is no mass. Tenderness: There is abdominal tenderness in the epigastric area. There is guarding. There is no right CVA tenderness, left CVA tenderness or rebound. Negative signs include Ortiz's sign and McBurney's sign. Hernia: No hernia is present. There is no hernia in the left inguinal area. Genitourinary: Penis: Normal. Testes: Normal. Right: Mass, tenderness or swelling not present. Left: Mass, tenderness or swelling not present. Rectum: Normal. Musculoskeletal: General: No tenderness or deformity. Normal range of motion. Cervical back: Normal range of motion and neck supple. Lymphadenopathy: Cervical: No cervical adenopathy. Skin: General: Skin is warm and dry. Coloration: Skin is not pale. Findings: No erythema or rash. Neurological: Mental Status: He is alert and oriented to person, place, and time. Cranial Nerves: No cranial nerve deficit. Sensory: No sensory deficit. Motor: No tremor, abnormal muscle tone or seizure activity. Coordination: Coordination normal. Deep Tendon Reflexes: Reflexes are normal and symmetric. Psychiatric: Mood and Affect: Mood is not anxious or depressed. Affect is not angry. Behavior: Behavior normal. Behavior is cooperative. Thought Content: Thought content normal. Judgment: Judgment normal. Radiology: XR ABDOMEN 2 VW Preliminary Result EXAM: XR ABDOMEN 2 VW HISTORY: 38 years-old Male; Epigastric and mid abdominal pain, constipation . TECHNIQUE: Frontal views of the abdomen and pelvis COMPARISON: X-ray chest 07/13/2021 IMPRESSION FINDINGS/IMPRESSION: No obstructive bowel gas pattern. Moderate colonic stool burden. No abnormal calcifications or acute osseous abnormalities are detected. Preliminary Report Dictated by Resident: Christine Cuellar Lab Results: Lab Results CBC WITH DIFF - Abnormal Result Value Ref Range WBC 9.03 4.20 - 10.70 10*3/?L RBC 5.27 4.26 - 5.52 10*6/?L HGB 15.7 12.2 - 16.4 g/dL HCT 46.6 38.4 - 49.3 % MCV 88.4 81.7 - 95.6 fL MCH 29.8 26.1 - 32.7 pg MCHC 33.7 31.2 - 35.0 g/dL RDW-SD 38.3 (*) 38.5 - 51.6 fL RDW-CV 11.9 (*) 12.1 - 15.4 % PLT 251 150 - 328 10*3/?L MPV 11.0 9.8 - 13.0 fL NRBC/100 WBC 0.0 0.0 - 10.0 /100 WBCs NRBC x10 3 <0.01 10*3/?L GRAN MAT (NEUT) % 56.3 % IMM GRAN % 0.20 % LYMPH % 36.0 % MONO % 6.1 % EOS % 1.1 % BASO % 0.3 % GRAN MAT x10 3 (ANC) 5.08 1.99 - 6.95 10*3/uL IMM GRAN x10 3 <0.03 0.00 - 0.06 10*3/uL LYMPH x10 3 3.25 (*) 1.09 - 3.23 10*3/uL MONO x10 3 0.55 0.36 - 1.02 10*3/uL EOS x10 3 0.10 0.06 - 0.53 10*3/uL BASO x10 3 0.03 0.01 - 0.09 10*3/uL COMP. METABOLIC PANEL (91886) - Abnormal NA 138 135 - 145 mmol/L K 4.1 3.5 - 5.0 mmol/L CL 100 98 - 108 mmol/L CO2 TOTAL 31 23 - 31 mmol/L AGAP 7 2 - 16 BUN 16 7 - 23 mg/dL GLUCOSE 129 (*) 70 - 110 mg/dL CREATININE 0.95 0.60 - 1.25 mg/dL TOTAL BILI 0.7 0.1 - 1.1 mg/dL CALCIUM 9.1 8.6 - 10.6 mg/dL T PROTEIN 8.9 (*) 6.3 - 8.2 g/dL ALBUMIN 4.7 3.5 - 5.0 g/dL ALK PHOS 90 34 - 122 U/L ALTv 21 5 - 50 U/L AST(SGOT) 28 13 - 40 U/L eGFR 105.1 mL/min/1.73m2 URINALYSIS - Abnormal APPEARANCE Clear Clear COLOR Yellow Yellow PH 6.0 4.8 - 8.0 SP GRAVITY 1.026 1.003 - 1.030 GLU U QUAL Normal Normal BLOOD 1+ (*) Negative KETONES Negative Negative PROTEIN Negative Negative UROBILIN Normal Normal BILIRUBIN Negative Negative NITRITE Negative Negative LEUK KHADIJAH Negative Negative RBC/HPF 8 (*) 0 - 3 HPF WBC/HPF 6 (*) 0 - 5 HPF BACTERIA Negative Negative MUCOUS Slight (*) Negative LPF LIPASE - Normal LIPASE 108 0 - 220 U/L EKG: If EKG completed, see Procedure Note. Orders and Treatments: Orders Placed This Encounter Procedures XR ABDOMEN 2 VW Cbc with Diff Comp. Metabolic Panel (58123) Lipase Urinalysis Orders Placed This Encounter Medications NaCl 0.9% (NS) bolus infusion 1,000 mL famotidine (PEPCID (PF)) injection 20 mg hyoscyamine sulfate (LEVSIN/SL) sublingual tablet 0.25 mg lactulose (CEPHULAC) solution 45 mL bisacodyL (DULCOLAX) tablet 10 mg docusate (COLACE) 100 mg capsule bisacodyL 5 mg EC tablet Saccharomyces boulardii (FLORASTOR) 250 mg capsule famotidine (PEPCID) 20 mg tablet First Provider Eval: ED Events Date/Time Event User Comments 12/18/23 1617 Medical Screening Begins MG VU MD -- 12/18/231616 First Provider Evaluation MG VU MD -- ED COURSE Patient's condition improved with the treatment provided in the ED, will DC home with adequate medications to treat his condition. Diagnosis/Impression as of 12/18/23 1737 Acute epigastric pain Constipation by delayed colonic transit Procedures: Procedures MDM: Medical Decision Making Problems Addressed: Acute epigastric pain: complicated acute illness or injury Constipation by delayed colonic transit: complicated acute illness or injury with systemic symptoms that poses a threat to life or bodily functions Amount and/or Complexity of Data Reviewed Labs: ordered. Decision-making details documented in ED Course. Radiology: ordered and independent interpretation performed. Decision-making details documented in ED Course. Risk OTC drugs. Prescription drug management. Flowsheet Documentation: Scoring Tools: No data recorded Disposition/Condition: ED Disposition ED Disposition Disch - Home Condition Stable Comment -- Discharge Medications: Patient's Medications START taking these medications BISACODYL 5 MG EC TABLET Take 1 tablet by mouth once daily as needed for Constipation. DOCUSATE (COLACE) 100 MG CAPSULE Take 2 capsules by mouth once daily as needed for Constipation. FAMOTIDINE (PEPCID) 20 MG TABLET Take 1 tablet by mouth in the morning and 1 tablet in the evening. SACCHAROMYCES BOULARDII (FLORASTOR) 250 MG CAPSULE Take 1 capsule by mouth in the morning and 1 capsule in the evening. CONTINUE taking these medications which have NOT CHANGED KETOROLAC 10 MG TABLET Take 1 tablet by mouth every 6 (six) hours as needed (headache). METOCLOPRAMIDE HCL 10 MG TABLET Take 1 tablet by mouth every 6 (six) hours as needed (nausea and/or headache). NAPROXEN SODIUM 550 MG TABLET Take 1 tablet by mouth 2 (two) times daily with meals. START taking Modified Medications as Prescribed No medications on file STOP taking these medications No medications on file Follow-up: Replaced by [facility] 2023-11-25 23:30:00 Pt discharged with diagnosis of chest pain, heat exhaustion. Printed and verbal instructions reviewed with and given to patient. Prescriptions given x 0. Patient verbalized understanding of teaching, and recommended follow-up. Denies questions or concerns at this time. Pt ambulatory at discharge. Appears in no apparent distress. No ataxia noted. Accompanied by family. AST Anne Carrero RN [facility] [employer] 2023-11-25 21:36:16 Pt presents to ED with c/o chest pain and dizziness that comes and goes for past few days. Pt reports CP and dizziness 4-5 times a day. Pt reports when the chest pain occurs it becomes hard to breath. Pt currently has 5/10 pressure in right chest to mid center. Patti Lott RN [facility] - [facility] 2023-11-25 21:30:00 Associated Order(s): EKG-12 Lead ROUTINE ONCE Pre-Procedure Diagnose(s): Chest pain, unspecified type Post-Procedure Diagnose(s): Chest pain, unspecified type [facility] Emergency Department Note Patient Name: Madi Low Date of : 1985 38 year old male Treatment Room: [place] [address] Primary Care Physician: PATIENT DOES NOT HAVE A PCP Patient Escorted by: Family [5] Mode of Arrival: Personal means [1] EMS Treatment Prior to ED Arrival: [facility] [employer] treatment: None Travel and Exposure Screening: Symptoms Does patient have any of these symptoms?: (not recorded) Exposure Screening Has patient had contact with someone with a communicable disease in the last month?: (not recorded) Diseases exposed to:: (not recorded) Is Patient ?: (not recorded) Exposure Date: (not recorded) Chief Complaint: No chief complaint on file. History of Present Illness: The patient presents from home for evaluation for chest pain as well as feeling lightheaded over the past several days. No shortness of breath. No change in his symptoms with exertion or deep breathing. No medications for symptoms at home. He does work outside and feels he has been having a difficult time and staying hydrated enough. No history of high blood pressure, diabetes or high cholesterol. No history of coronary disease in himself or his family. Reports today he stayed home and does feel better today than he did yesterday. Here for evaluation. Past Medical History/Immunizations: History reviewed. No pertinent past medical history. Tetanus received in last 5 years: Unknown Allergies: No Known Allergies Past Social History: Substance & Sexual Activity No substance use or sexual activity history on file. Past Surgical History: History reviewed. No pertinent surgical history. Review of Systems: Review of Systems Constitutional: Negative for chills and fever. Respiratory: Negative for cough and shortness of breath. Cardiovascular: Positive for chest pain. Gastrointestinal: Negative for abdominal pain and vomiting. Genitourinary: Negative for dysuria. Musculoskeletal: Negative for arthralgias, neck pain and neck stiffness. Skin: Negative for wound. Neurological: Positive for light-headedness. Psychiatric/Behavioral: Negative for agitation. Endocrine: Negative for goiter. Physical Exam: ED Triage Vitals [11/25/232137] Weight 97.5 kg (215 lb) Actual or estimated Height 1.778 m (5' 10") BP 128/88 Pulse 74 Resp 16 Temp 37 ?C (98.6 ?F) Temp src SpO2 100 % Measured on Room air Physical Exam Vitals and nursing note reviewed. Constitutional: Appearance: Normal appearance. He is normal weight. HENT: Head: Normocephalic. Mouth/Throat: Mouth: Mucous membranes are dry. Cardiovascular: Rate and Rhythm: Normal rate and regular rhythm. Pulmonary: Effort: Pulmonary effort is normal. No respiratory distress. Breath sounds: No wheezing or rhonchi. Chest: Chest wall: No tenderness. Abdominal: General: There is no distension. Palpations: Abdomen is soft. There is no mass. Tenderness: There is no abdominal tenderness. There is no guarding. Hernia: No hernia is present. Musculoskeletal: General: Normal range of motion. Cervical back: Normal range of motion and neck supple. Skin: General: Skin is warm and dry. Neurological: General: No focal deficit present. Mental Status: He is alert and oriented to person, place, and time. Radiology: No orders to display Lab Results: Lab Results CBC WITH DIFF - Abnormal Result Value Ref Range WBC 5.54 4.20 - 10.70 10*3/?L RBC 3.83 (*) 4.26 - 5.52 10*6/?L HGB 11.6 (*) 12.2 - 16.4 g/dL HCT 34.1 (*) 38.4 - 49.3 % MCV 89.0 81.7 - 95.6 fL MCH 30.3 26.1 - 32.7 pg MCHC 34.0 31.2 - 35.0 g/dL RDW-SD 38.5 38.5 - 51.6 fL RDW-CV 11.9 (*) 12.1 - 15.4 % PLT 171 150 - 328 10*3/?L MPV 10.9 9.8 - 13.0 fL NRBC/100 WBC 0.0 0.0 - 10.0 /100 WBCs NRBC x10 3 <0.01 10*3/?L GRAN MAT (NEUT) % 61.8 % IMM GRAN % 0.20 % LYMPH % 28.0 % MONO % 7.6 % EOS % 2.0 % BASO % 0.4 % GRAN MAT x10 3 (ANC) 3.43 1.99 - 6.95 10*3/uL IMM GRAN x10 3 <0.03 0.00 - 0.06 10*3/uL LYMPH x10 3 1.55 1.09 - 3.23 10*3/uL MONO x10 3 0.42 0.36 - 1.02 10*3/uL EOS x10 3 0.11 0.06 - 0.53 10*3/uL BASO x10 3 <0.03 0.01 - 0.09 10*3/uL COMP. METABOLIC PANEL (69158) - Abnormal NA 141 135 - 145 mmol/L K 4.9 3.5 - 5.0 mmol/L CL 103 98 - 108 mmol/L CO2 TOTAL 36 (*) 23 - 31 mmol/L AGAP 2 2 - 16 BUN 11 7 - 23 mg/dL GLUCOSE 154 (*) 70 - 110 mg/dL CREATININE 0.82 0.60 - 1.25 mg/dL TOTAL BILI 1.0 0.1 - 1.1 mg/dL CALCIUM 9.1 8.6 - 10.6 mg/dL T PROTEIN 8.3 (*) 6.3 - 8.2 g/dL ALBUMIN 4.3 3.5 - 5.0 g/dL ALK PHOS 65 34 - 122 U/L ALTv 28 5 - 50 U/L AST(SGOT) 38 13 - 40 U/L eGFR 115.3 mL/min/1.73m2 TROPONIN I - Normal TROPONIN I 0.018 <=0.034 ng/mL MAGNESIUM - Normal MAGNESIUM 2.0 1.7 - 2.4 mg/dL URINALYSIS - Normal APPEARANCE Clear Clear COLOR Yellow Yellow PH 7.0 4.8 - 8.0 SP GRAVITY 1.018 1.003 - 1.030 GLU U QUAL Normal Normal BLOOD Negative Negative KETONES Negative Negative PROTEIN Negative Negative UROBILIN Normal Normal BILIRUBIN Negative Negative NITRITE Negative Negative LEUK KHADIJAH Negative Negative RBC/HPF 3 0 - 3 HPF WBC/HPF 1 0 - 5 HPF BACTERIA Negative Negative EKG: If EKG completed, see Procedure Note. Orders and Treatments: Orders Placed This Encounter Procedures CBC WITH DIFF COMP. METABOLIC PANEL (88421) TROPONIN I Magnesium URINALYSIS Orders Placed This Encounter Medications NaCl 0.9% (NS) bolus infusion 1,000 mL First Provider Eval: ED Events Date/Time Event User Comments 11/25/232144 Medical Screening Begins CATIE CONCEPCION DO -- 11/25/232144 First Provider Evaluation CATIE CONCEPCION DO -- ED COURSE Diagnosis/Impression as of 11/25/23 2259 Chest pain, unspecified type Heat exhaustion, initial encounter Procedures: EKG-12 Lead ROUTINE ONCE Date/Time: 11/25/2023 10:24 PM Performed by: Catie Concepcion DO Authorized by: Catie Concepcion DO ECG interpreted by ED Physician in the absence of a container finisher: yes Interpretation: Interpretation: normal Rate: ECG rate: 66 ECG rate assessment: normal Rhythm: Rhythm: sinus rhythm Ectopy: Ectopy: none QRS: QRS axis: Normal QRS intervals: Normal QRS conduction: normal ST segments: ST segments: Normal Q waves: Abnormal Q-waves: not present MDM: Medical Decision Making The patient presents from home for evaluation of chest pain for the past several days as well as feeling lightheaded. No radiation of pain to his back, neck or jaw. No shortness of breath. No change in his symptoms with exertion or deep breathing. No medications tried for symptoms at home. He does work outside and feels has been having a difficult time and drinking enough fluids. No history of high blood pressure, diabetes or high cholesterol. Vital signs are stable in the ER. His heart is regular rhythm. His lungs are clear bilaterally. He has no anterior chest wall tenderness with palpation. His EKG shows a normal sinus rhythm, no STEMI. The patient is without risk factors for ACS and his presentation is atypical for this. Suspect dehydration as a cause of his symptoms. Will check laboratory studies and give the patient IV fluids here in the ER. Anticipate discharge home later. 2300 -the patient is doing well here in the ER. He is feeling better after IV fluids. His laboratory studies are unremarkable. He remained stable here in the ER and is okay for discharge home with PCP follow-up. Encouraged him to drink more fluids throughout the day to help prevent dehydration and heat exhaustion. Problems Addressed: Chest pain, unspecified type: acute illness or injury Heat exhaustion, initial encounter: acute illness or injury Amount and/or Complexity of Data Reviewed Labs: ordered. Decision-making details documented in ED Course. ECG/medicine tests: ordered and independent interpretation performed. Decision-making details documented in ED Course. Risk Prescription drug management. Flowsheet Documentation: Scoring Tools: No data recorded Disposition/Condition: ED Disposition ED Disposition Disch - Home Condition Stable Comment -- Discharge Medications: Patient's Medications START taking these medications No medications on file CONTINUE taking these medications which have NOT CHANGED KETOROLAC 10 MG TABLET Take 1 tablet by mouth every 6 (six) hours as needed (headache). METOCLOPRAMIDE HCL 10 MG TABLET Take 1 tablet by mouth every 6 (six) hours as needed (nausea and/or headache). NAPROXEN SODIUM 550 MG TABLET Take 1 tablet by mouth 2 (two) times daily with meals. START taking Modified Medications as Prescribed No medications on file STOP taking these medications No medications on file Follow-up: Electronically signed by: Catie Concepcion DO 11/25/23 4992 T [facility]
--- NOTE | 2024-10-08 21:20 | RAD REPORT ---
EXAM: Chest Single View HISTORY: 39 years Male CHEST PAIN COMPARISON: None. FINDINGS: LUNGS/PLEURA: The lungs are clear. No pleural effusions or pneumothorax. No pulmonary edema. CARDIAC/MEDIASTINUM: The cardiac silhouette is within normal limits. UPPER ABDOMEN: No significant abnormality. BONES: No acute abnormality. LINES/TUBES/OTHER: N/A IMPRESSION: No evidence of acute cardiopulmonary disease.
[2024-10-08] MEDS ORDERED: ALBUTEROL 2.5 MG/3 ML NEB SOL ONE (21:39)
[2024-10-08] MEDS ORDERED: IPRATROPIUM BROM 0.5MG/2.5ML ONE (21:39)
[2024-10-08] MEDS ORDERED: ASPIRIN 81 MG CHEWABLE TABLET ONE (21:40)
[2024-10-08 22:03] LABS: Barbiturates NEGATIVE (NEGATIVE); Benzodiazepines NEGATIVE (NEGATIVE); Cocaine NEGATIVE (NEGATIVE); METHAMPHETAM NEGATIVE (NEGATIVE); Methadone NEGATIVE (NEGATIVE); Opiates NEGATIVE (NEGATIVE); Phencyclidine NEGATIVE (NEGATIVE); THC Cannibis NEGATIVE (NEGATIVE)
[2024-10-08 22:09] LABS: Absolute Eosinophils 0.1 K/uL (0-0.5); Absolute Lymphocytes (CBC) 2.5 K/uL (0.7-4.9); Absolute Monocytes 0.4 K/uL (0.1-1.3); Absolute Neutrophil 3.8 K/uL (1.8-8.0); Basophils % 0.5 % (0-1.3); Eosinophils % 1.8 % (0-4.4); Hemoglobin 14.3 g/dL (13.6-17.9); Lymphocytes % 36.7 % (15.3-44.8); MCHC 34.9 g/dL (32.0-36.0); MCV 86.1 fL (80-100); MPV 8.5 fL (7.6-11.3); Monocytes % 5.7 % (3.3-12.3); Neutrophils % 55.3 % (41.7-73.7); Nucleated Red Blood Cells % 0.2 % (0-0); Platelets 236 thou/uL (152-406); RBC Red Blood Cell Count 4.77 M/uL (4.33-5.43); Red Cell Distribution Width 12.9 % (12.1-15.2)
[2024-10-08 22:13] LABS: ALT/SGPT 19 U/L (16-61); AST/SGOT 15 U/L (15-37); Albumin 3.6 g/dL (3.4-5.0); Albumin/Globulin Ratio 0.9 (1.1-1.8); Alkaline Phosphatase 69 U/L (45-117); Anion Gap 5.9 mEq/L (5.0-15.0); BUN Blood Urea Nitrogen 13 mg/dL (7-18); Bicarbonate 30 mEq/L (21-32); Bilirubin Total 0.3 mg/dL (0.2-1.0); Glomerular Filtration Rate 77 ml/min (=/>90); Glucose Level 144 mg/dL (74-106); Magnesium 1.9 mg/dL (1.6-2.4); NT PRO-BNP 29 pg/mL (<125); Potassium 3.9 mEq/L (3.5-5.1); Protein, Total 7.6 g/dL (6.4-8.2); Sodium Level 137 mEq/L (136-145); Troponin High Sensitivity 4.6 pg/mL (<58.9)
[2024-10-08 22:19] LABS: PT Prothrombin Time 11.7 SECONDS (10-13.0); Protime INR 1.03
[2024-10-08 22:48] LABS: Bilirubin Direct < 0.2 mg/dL (0-0.2); Bilirubin Indirect, Calculated 0.1 mg/dL (0.2-0.8)
--- NOTE | 2024-10-08 23:00 | EDPHYS ---
Physician Documentation [facility] Name: Carl Low Age: 39 yrs Sex: Male : 1985 Arrival Date: 10/08/2024 Time: 20:47 Bed 8 Private MD: ED Physician Brigido Ramos HPI: 10/08 21:07 This 39 yrs old Black Male presents to ER via Unassigned with complaints of Chest sb4 Tightness, Shortness Of Breath. 23:00 Patient reports chest pain and shortness of breath that began after eating lunch this sb4 afternoon. States that he has had several episodes of this since. States that he has been seeing GI for chest pain and had a scope done and was prompted Protonix. States that those symptoms had improved so today was his first day off the pantoprazole. States the pain does not feel like a burning sensation. States it feels like a heaviness and radiates to his left arm. Does smoke cigarettes daily. Historical: - Allergies: 21:12 No Known Allergies; ha1 - PMHx: 21:12 punctured lung from rib fx -football injury; Diabetes mellitus; ha1 - Immunization history:: Adult Immunizations up to date. - Infectious Disease History:: Denies. - Social history:: Smoking status: Patient reports the use of cigarette tobacco products, smokes one-half pack cigarettes per day. ROS: 23:00 Constitutional: Negative for fever, chills, and weight loss, sb4 23:00 Cardiovascular: Positive for chest pain, 23:00 All other systems are negative, Exam: 23:00 Constitutional: This is a well developed, well nourished patient who is awake, alert, sb4 and in no acute distress. Head/Face: Normocephalic, atraumatic. Eyes: Extra-ocular motions intact. Periorbital areas with no swelling, redness, or edema. ENT: Mucous membranes moist. Cardiovascular: Regular rate and rhythm with a normal S1 and S2. Respiratory: No increased work of breathing, no retractions or nasal flaring. Abdomen/GI: Soft, non-tender, no distension. Skin: Warm, dry with normal turgor. Normal color with no rashes, no lesions, and no evidence of cellulitis. 23:00 Respiratory: Breath sounds: are clear throughout, Vital Signs: 20:52 BP 126 / 87; Pulse 74; Resp 17 S; Temp 97.5(T); Pulse Ox 98% on R/A; Weight 95.25 kg; ha1 Height 5 ft. 10 in. ; 21:31 BP 122 / 84; Pulse 76; Resp 18; Temp 97.5; Pulse Ox 98% ; Pain 4/10; bm8 22:52 BP 128 / 81; Pulse 71; Resp 16; Temp 97.5; Pulse Ox 98% ; Pain 0/10; bm8 20:52 Body Mass Index 30.13 (95.25 kg, 177.8 cm) ha1 21:31 Pain Scale: Adult bm8 22:52 Pain Scale: Adult bm8 Andrae Coma Score: 21:31 Eye Response: spontaneous(4). Motor Response: obeys commands(6). Verbal Response: bm8 oriented(5). Total: 15. 22:52 Eye Response: spontaneous(4). Motor Response: obeys commands(6). Verbal Response: bm8 oriented(5). Total: 15. MDM: 20:52 Medical Screening Exam initiated sb4 23:01 Data reviewed: vital signs, nurses notes, lab test result(s), EKG, radiologic studies, sb4 and as a result, I will discharge patient. Care significantly affected by the following chronic conditions: Diabetes. Counseling: I had a detailed discussion with the patient and/or guardian regarding the historical points, exam findings, and any diagnostic results supporting the discharge/admit diagnosis, lab results, radiology results, the need for outpatient follow up, for definitive care, to return to the emergency department if symptoms worsen or persist or if there are any questions or concerns that arise at home, smoking cessation. 10/08 21:06 Order name: Basic Metabolic Panel; Complete Time: 22:49 sb4 10/08 21:06 Order name: CBC with Diff; Complete Time: 22:13 sb4 10/08 21:06 Order name: LFT's; Complete Time: 22:49 sb4 10/08 21:06 Order name: Magnesium; Complete Time: 22:49 sb4 10/08 21:06 Order name: NT PRO-BNP; Complete Time: 22:49 sb4 10/08 21:06 Order name: PT-INR; Complete Time: 22:27 sb4 10/08 21:06 Order name: Troponin HS; Complete Time: 22:49 sb4 10/08 21:06 Order name: UDS; Complete Time: 22:07 sb4 10/08 21:06 Order name: TSH; Complete Time: 22:49 sb4 10/08 21:06 Order name: XRAY Chest (1 view); Complete Time: 21:24 sb4 10/08 21:06 Order name: Cardiac monitoring; Complete Time: 21:34 sb4 10/08 21:06 Order name: EKG - Nurse/Tech; Complete Time: 21:14 sb4 10/08 21:06 Order name: IV Saline Lock; Complete Time: 21:34 sb4 10/08 21:06 Order name: Labs collected and sent; Complete Time: 21:34 sb4 10/08 21:06 Order name: O2 Per Protocol; Complete Time: 21:34 sb4 10/08 21:06 Order name: O2 Sat Monitoring; Complete Time: 21:34 sb4 EC:13 Rate is 70 beats/min. Rhythm is regular, Sinus Rhythm with 1st degree heart block. NC sb4 interval is prolonged at 212 msec. QRS interval is normal at 76 msec. QT interval is normal at 380 msec. No Q waves. T waves are Normal. No ST changes noted. Clinical impression: No evidence of ischemia. Interpreted by me. Reviewed by me. Administered Medications: 21:46 Drug: Aspirin PO Chewable Tablet 324 mg PO once; 81 mg tablets x 4 Route: PO; [facility] 22:00 Follow up: Response: No adverse reaction [facility] 21:46 Drug: DuoNeb Nebulize (3:1) (2.5 mg - 0.5 mg) 3 ml Nebulizer once Route: Nebulizer; [facility] 21:59 Follow up: Response: No adverse reaction [facility] Disposition: 10/09 07:13 Co-signature as Attending Physician, Brigido Ramos MD I reviewed the patient's care rn provided by the Advanced Practice Provider and agree with the diagnosis and treatment plan. Disposition Summary: 10/08/24 22:59 Discharge Ordered Notes: Location: Home sb4 Problem: new sb4 Symptoms: have improved sb4 Condition: Stable sb4 Diagnosis - Chest pain, unspecified sb4 Followup: sb4 - With: Private Physician - When: 1 week - Reason: Recheck today's complaints, Continuance of care, Re-evaluation by your physician Discharge Instructions: - Discharge Summary Sheet sb4 - Nonspecific Chest Pain, Adult, [id number] sb4 Forms: - Patient Portal Instructions sb4 - Leadership Thank You Letter sb4 Prescriptions: - albuterol sulfate 90 mcg/actuation Inhalation HFA Aerosol Inhaler - inhale 1 puff INHALATION route every 6 hours as needed for shortness of breath sb4 or wheezing; 1 Applicator; Refills: 0, Product Selection Permitted Signatures: Dispatcher [employer] EDMS Brigido Ramos MD MD rn Ayala, Heidy RN RN ha1 Katie Willett, PA-C PA-C sb4 London Brice, RN RN bm8 Corrections: (The following items were deleted from the chart) 10/08 21:06 21:06 BASIC METABOLIC PANEL+C.LAB.BRZ ordered. EDMS EDMS 21: 21:06 CBC+H.LAB.BRZ ordered. EDMS EDMS 21:06 21:06 HEPATIC FUNCTION+C.LAB.BRZ ordered. EDMS EDMS 21: 21:06 MAGNESIUM+C.LAB.BRZ ordered. EDMS EDMS 21:06 21:06 PROBNP+C.LAB.BRZ ordered. EDMS EDMS 21:06 21:06 PROTIME (+INR)+COAG.LAB.BRZ ordered. EDMS EDMS 21:06 21:06 Troponin High Sensitivity+C.LAB.BRZ ordered. EDMS EDMS 21:06 21:06 URINE DRUG SCREEN+UC.LAB.BRZ ordered. EDMS EDMS 21:06 21:06 THYROID STIMULAT HORMONE+C.LAB.BRZ ordered. EDMS EDMS 21:06 21:06 Chest Single View+RAD.RAD.BRZ ordered. EDMS EDMS
--- NOTE | 2024-10-08 23:00 | ER ---
Nurse's Notes [facility] Name: Carl Low Age: 39 yrs Sex: Male : 1985 Arrival Date: 10/08/2024 Time: 20:47 Bed 8 Private MD: Diagnosis: Chest pain, unspecified Presentation: 10/08 20:52 Chief complaint: Patient states: CHEST PAIN OFF AND ON AFTER LUNCH TODAY . SHORTNESS OF ha1 BREATH. 20:52 Coronavirus screen: Client denies travel out of the [place] in the last 14 days. Ebola ha1 Screen: No symptoms or risks identified at this time. Initial Sepsis Screen: Does the patient meet any 2 criteria? No. Patient's initial sepsis screen is negative. Does the patient have a suspected source of infection? No. Patient's initial sepsis screen is negative. Risk Assessment: Do you want to hurt yourself or someone else? Patient reports no desire to harm self or others. Onset of symptoms was October 08, 2024. 20:52 Method Of Arrival: Ambulatory ha1 20:52 Acuity: CARRIE 2 ha1 Triage Assessment: 21:00 General: Appears uncomfortable, Behavior is calm, cooperative. Pain: Complains of pain ha1 in chest Pain radiates to left arm Pain currently is 5 out of 10 on a pain scale. Neuro: Level of Consciousness is awake, alert, obeys commands, Oriented to person, place, time, situation. Cardiovascular: Reports chest pain, Capillary refill < 3 seconds Patient's skin is warm and dry. Cardiovascular: Reports shortness of breath. Respiratory: Reports shortness of breath Airway is patent Respiratory effort is even, unlabored, Respiratory pattern is regular, symmetrical. Historical: - Allergies: 21:12 No Known Allergies; ha1 - PMHx: 21:12 punctured lung from rib fx -football injury; Diabetes mellitus; ha1 - Immunization history:: Adult Immunizations up to date. - Infectious Disease History:: Denies. - Social history:: Smoking status: Patient reports the use of cigarette tobacco products, smokes one-half pack cigarettes per day. Screenin:31 [facility] ED Fall Risk Assessment (Adult) History of falling in the last 3 months, bm8 including since admission No falls in past 3 months (0 pts) Confusion or Disorientation No (0 pts) Intoxicated or Sedated No (0 pts) Impaired Gait No (0 pts) Mobility Assist Device Used No (0 pt) Altered Elimination No (0 pt) Score/Fall Risk Level 0 - 2 = Low Risk Oriented to surroundings, Maintained a safe environment, Educated pt \T\ family on fall prevention, incl call for assistance when getting out of bed, Assessed \T\ reinforced patient's understanding of fall precautions, Hourly rounding (assess needs \T\ fall precautionary measures) done, Used ambulatory aids as needed (educated on \T\ assisted with), Used gait belt as appropriate. Abuse screen: Denies threats or abuse. Nutritional screening: No deficits noted. Tuberculosis screening: No symptoms or risk factors identified. Assessment: 21:31 Reassessment: Patient appears in no apparent distress at this time. Patient and/or bm8 family updated on plan of care and expected duration. Pain level reassessed. Patient is alert, oriented x 3, equal unlabored respirations, skin warm/dry/pink. General: Appears in no apparent distress. comfortable, Behavior is calm, cooperative, appropriate for age. Pain: Complains of pain in left arm and chest Pain currently is 4 out of 10 on a pain scale. Quality of pain is described as aching, crampy, Pain began around 1200. Neuro: No deficits noted. Level of Consciousness is awake, alert, obeys commands, Oriented to person, place, time, situation, Appropriate for age. Cardiovascular: Reports chest pain, Heart tones S1 S2 present Capillary refill < 3 seconds in bilateral fingers Patient's skin is warm and dry. Rhythm is 1st degree av block. Respiratory: Airway is patent Respiratory effort is even, unlabored, Respiratory pattern is regular, symmetrical. 22:52 Reassessment: Patient appears in no apparent distress at this time. Patient and/or bm8 family updated on plan of care and expected duration. Pain level reassessed. Patient is alert, oriented x 3, equal unlabored respirations, skin warm/dry/pink. Patient denies pain at this time. Patient states feeling better. Patient states symptoms have improved. Pain: Denies pain. Vital Signs: 20:52 BP 126 / 87; Pulse 74; Resp 17 S; Temp 97.5(T); Pulse Ox 98% on R/A; Weight 95.25 kg; ha1 Height 5 ft. 10 in. ; 21:31 BP 122 / 84; Pulse 76; Resp 18; Temp 97.5; Pulse Ox 98% ; Pain 4/10; bm8 22:52 BP 128 / 81; Pulse 71; Resp 16; Temp 97.5; Pulse Ox 98% ; Pain 0/10; bm8 20:52 Body Mass Index 30.13 (95.25 kg, 177.8 cm) ha1 21:31 Pain Scale: Adult bm8 22:52 Pain Scale: Adult bm8 Andrae Coma Score: 21:31 Eye Response: spontaneous(4). Motor Response: obeys commands(6). Verbal Response: bm8 oriented(5). Total: 15. 22:52 Eye Response: spontaneous(4). Motor Response: obeys commands(6). Verbal Response: bm8 oriented(5). Total: 15. ED Course: 20:52 Patient arrived in ED. im 20:52 Katie Willett PA-C is PHCP. sb4 20:52 Brigido Ramos MD is Attending Physician. sb4 21:11 Triage completed. ha1 21:18 XRAY Chest (1 view) In Process Unspecified. EDMS 21:30 London Brice, RN is Primary Nurse. bm8 21:31 Patient has correct armband on for positive identification. Bed in low position. Call bm8 light in reach. Side rails up X 1. Client placed on continuous cardiac and pulse oximetry monitoring. NIBP monitoring applied. monitoring and evaluation advisor on. Pulse ox on. NIBP on. Door closed. Noise minimized. Warm blanket given. Pillow given. Verbal reassurance given. Head of bed elevated. 21:31 No provider procedures requiring assistance completed. Inserted saline lock: 20 gauge bm8 in right antecubital area, using aseptic technique. Blood collected. Flushed with 10 mL NS. Patient maintains SpO2 saturation greater than 95% on room air. 21:35 Initial lab(s) drawn, by me, sent to lab. Urine collected: clean catch specimen, clear, bm8 EKG done, by ED staff, reviewed by rBigido Ramos MD. 23:01 Provided Education on: post er care. bm8 23:01 IV discontinued, intact, bleeding controlled, No redness/swelling at site. Pressure bm8 dressing applied. 23:02 Arm band placed on right wrist. bm8 Administered Medications: 21:46 Drug: Aspirin PO Chewable Tablet 324 mg PO once; 81 mg tablets x 4 Route: PO; bm8 22:00 Follow up: Response: No adverse reaction bm8 21:46 Drug: DuoNeb Nebulize (3:1) (2.5 mg - 0.5 mg) 3 ml Nebulizer once Route: Nebulizer; bm8 21:59 Follow up: Response: No adverse reaction bm8 Medication: 21:31 VIS not applicable for this client. bm8 Outcome: :59 Discharge ordered by . sb4 23:01 Discharged to home ambulatory, bm8 23:01 Condition: stable 23:01 Discharge instructions given to patient, family, Instructed on discharge instructions, follow up and referral plans. no drinking with medication, no driving heavy equipment, medication usage, safety practices, Demonstrated understanding of instructions, follow-up care, medications, Prescriptions given X 1, 23:03 Patient left the ED. bm8 Signatures: Dispatcher [employer] EDMS Dorita Huerta RN RN ha1 Katie Willett PAKassy PAChrisC sb4 Soledad Gooden Brad, RN RN bm8
[2024-10-08 23:43] VITALS: TEMP 97.5; O2SAT 98
[2024-10-08 23:45] VITALS: BP 128/81
--- NOTE | 2024-10-12 12:20 | EKG ---
Test Date: 2024-10-08 Test Time: 21:06:14 Rug Sample Beveler: GEORGETTE MEASUREMENT RESULTS: Intervals: Rate: 70 AK: 212 QRSD: 76 QT: 380 QTc: 410 [place]: P: 62 AK: 212 QRS: 45 T: 53 INTERPRETIVE STATEMENTS: Sinus rhythm with 1st degree AV block Otherwise normal ECG Compared to ECG 02/10/2002 21:36:00 First degree AV block now present Sinus arrhythmia no longer present ST (T wave) deviation no longer present Electronically Signed On 10-12-24 12:11:01 CDT by Nguyễn Mcneal
== END 2024-10-08 23:03 | disposition home or self-care (01) ==
LOC: ER 20:47
DX: R07.89 Other chest pain (principal); R06.02 Shortness of breath; E11.9 Type 2 diabetes mellitus without complications; F17.210 Nicotine dependence, cigarettes, uncomplicated
CPT/HCPCS: 93005; 85025; 80048; 36415; 83735; 85610; 80076; 84443; 84484; 83880; 80307; 71045; 99285; J7613; J7644